=== PATIENT | male | born 1990 | race Two or more races ===

== ENCOUNTER 2019-04-07 02:57 | Emergency (ER) | payer SELFPAY ==
[2019-04-07] MEDS ORDERED: Lisinopril 10 MG Tab PO ONE (03:26)
--- NOTE | 2019-04-07 03:29 | EDM.PDOC ---
ED HPI GENERAL MEDICAL PROBLEM - General Chief Complaint: Cardiovascular Problem Stated Complaint: [facility] Time Seen by Provider: 04/07/19 03:25 Source of Information: Reports: Patient, RN Notes Reviewed - History of Present Illness INITIAL COMMENTS - FREE TEXT/NARRATIVE: 28-year-old male was having difficulty getting to sleep. He states he started feeling "dizzy" and then started having numbness and tingling of his left arm and bilateral hands. He states his father had a stroke at a very young age so he became worried about that. He has previously been on medication for high blood pressure but states he has lost about 90 pounds and stopped taking his blood pressure medicine about one month ago. 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 He checked his blood pressure and it was high, he then called 911 and has been transported here by ambulance. - Related Data Allergies Allergy/AdvReac Type Severity Reaction Status Date / Time No Known Allergies Allergy Verified 04/07/19 03:08 Home Meds: Home Meds Lisinopril [Prinivil] 10 mg PO DAILY #30 tab 04/07/19 [Rx] Past Medical History Cardiovascular History: Reports: Hypertension Social & Family History - Tobacco Use Smoking Status *Q: Current Every Day Smoker Years of Tobacco use: 10 Packs/Tins Daily: 1 - Caffeine Use Caffeine Use: Reports: Coffee - Recreational Drug Use Recreational Drug Use: Yes Drug Use in Last 12 Months: Yes Recreational Drug Type: Reports: Marijuana/Hashish ED ROS GENERAL - Review of Systems Review Of Systems: See Below Constitutional: Reports: No Symptoms HEENT: Reports: No Symptoms Respiratory: Denies: Shortness of Breath Cardiovascular: Denies: Chest Pain GI/Abdominal: Denies: Abdominal Pain, Nausea, Vomiting Musculoskeletal: Denies: Shoulder Pain, Arm Pain Neurological: Reports: Dizziness, Numbness, Tingling. Denies: Headache, Weakness ED EXAM, GENERAL - Physical Exam Exam: See Below General Appearance: Alert, No Apparent Distress Eye Exam: Bilateral Eye: PERRL Throat/Mouth: Normal Inspection Head: Atraumatic. No: Facial Swelling Neck: Supple Respiratory/Chest: No Respiratory Distress, Lungs Clear, Normal Breath Sounds Cardiovascular: Regular Rate, Rhythm Extremities: Normal Inspection, Normal Range of Motion. No: Pedal Edema Skin Exam: Warm, Dry Course - Vital Signs Last Recorded V/S: Last Vital Signs Temp 97.9 F 04/07/19 03:05 Pulse 68 04/07/19 03:05 Resp 16 04/07/19 03:05 BP 144/94 H 04/07/19 03:05 Pulse Ox 97 04/07/19 03:05 - Orders/Labs/Meds Meds: Medications Discontinued Medications Generic Name Dose Route Start Last Admin Trade Name Chelsie PRN Reason Stop Dose Admin Lisinopril 10 mg 04/07/19 03:26 Prinivil PO 04/07/19 03:27 ONETIME ONE - Re-Assessments/Exams Free Text/Narrative Re-Assessment/Exam: 04/07/19 03:49 Blood pressure was somewhat high in the 160/100 range for EMS. 144/94 on arrival to ED. His neuro exam is normal. Cardiac exam also normal. He has been given lisinopril 10 mg by mouth. His next blood pressure did come down to the 135/84 range. He states he did drink coffee yesterday which was unusual for him. He hasn't exercised for a few days. He has no unusual symptoms or findings at time of my exam. Discharge instructions as documented. Departure - Departure Time of Disposition: 03:35 Disposition: Home, Self-Care 01 Condition: Fair Clinical Impression: Panic attack Hypertension Qualifiers: Hypertension type: essential hypertension Qualified Code(s): I10 - Essential ( primary) hypertension Prescriptions: Lisinopril [Prinivil] 10 mg PO DAILY #30 tab Instructions: Managing Your Hypertension Forms: ED Department Discharge Additional Instructions: Avoid further caffeine or at least keep it to a very reasonable amount, unable water to maintain hydration, avoid salty foods, lisinopril 10 mg daily for high blood pressure. Follow-up with your regular medical provider for recheck when you do get back home. Check your blood pressure once or twice daily, Keep a log of your blood pressures and bring that with you for that appointment.
== END 2019-04-07 03:50 | disposition home or self-care (01) ==
LOC: JD.ED 02:57
DX: F41.0 Panic disorder [episodic paroxysmal anxiety] (principal); I10 Essential (primary) hypertension; F17.210 Nicotine dependence, cigarettes, uncomplicated; Z79.899 Other long term (current) drug therapy
CPT/HCPCS: 99283; A9270